=== PATIENT | female | born 1955 | race Caucasian/White ===

== ENCOUNTER 2018-05-09 12:46 | Outpatient (CLI) | payer MEDICARE ==
--- NOTE | 2018-05-09 14:42 | ULT ---
ULTRASOUND RIGHT GROIN: Date: 05/09/18 HISTORY: 62-year-old female with right groin pain and swelling for 2 weeks, worsening recently. FINDINGS: No solid or cystic mass is identified. IMPRESSION: 1. Negative. 2. Recommend CT of abdomen and pelvis (IV contrast is preferred, but a noncontrast CT would probably be adequate, if IV contrast is contraindicated). POS: [facility]
== END 2018-05-09 12:47 | disposition home or self-care (01) ==
LOC: ULT 12:46
PROVIDERS: ATTEND Family Medicine
DX: K40.90 Unilateral inguinal hernia, without obstruction or gangrene, not specified as recurrent (principal)
CPT/HCPCS: 76999

== ENCOUNTER 2018-05-11 12:06 | Outpatient (CLI) | payer MEDICARE ==
--- NOTE | 2018-05-11 13:11 | CT ---
CT OF THE PELVIS WITH CONTRAST: Date: 05/11/18 COMPARISON: None. HISTORY: Right inguinal pain and swelling. Right hip and groin pain. TECHNIQUE: Multiple contiguous axial images were obtained in a CT of the pelvis with contrast. Coronal reformats were performed. FINDINGS: Mild degenerative changes are seen in both hips. No fracture or dislocation seen. The patient is status post hysterectomy. The visualized intrapelvic structures are unremarkable. No p elvic adenopathy is seen. No abnormality is seen in either inguinal region. No enlarged inguinal lymph nodes are present. IMPRESSION: No significant abnormality. POS: [facility]
[2018-05-11] MEDS ORDERED: Iopamidol 370 76% 100 ML VIAL ONE (15:08)
== END 2018-05-11 12:07 | disposition home or self-care (01) ==
LOC: CT 12:06
PROVIDERS: ATTEND Family Medicine
DX: R10.30 Lower abdominal pain, unspecified (principal)
CPT/HCPCS: 72193; 82565; Q9967

== ENCOUNTER 2018-08-01 13:26 | Outpatient (CLI) | payer MEDICARE ==
--- NOTE | 2018-08-01 15:27 | MRI ---
MRI Lumbar Spine Noncontrast: HISTORY: Low back pain with radiation of pain into right lower extremity. Symptoms been present for 2 months. Lumbar radiculopathy. COMPARISON: None FINDINGS: The visualized retroperitoneal structures demonstrate a normal appearance. Conus medullaris is normal in morphology and terminates at the L1-2 level. Normal signal intensity is demonstrated in the bone marrow. L1-2: There is no disc bulge or disc herniation. Central spinal canal and neural foramina are patent. L2-3: There is a mild broad-based disc osteophyte complex which results in flattening of the anterior aspect of the thecal sac. Neural foramina are patent. L3-4: There is a mild broad-based disc osteophyte complex with evidence of annular tear involving the left posterior lateral margin of the intervertebral disc. Mild facet degenerative changes are seen. No significant central canal narrowing. The neural foramina are patent. L4-5: There is mild broad-based disc osteophyte complex. Facet hypertrophic changes are also present with prominent fluid signal intensity seen within the facet joints. Mild ligamentous thickening is present. There is mild generalized narrowing of the central spinal canal. There is minimal right-side d neural foraminal narrowing. The left neural foramen is patent. L5-S1: There is minimal disc osteophyte complex. Central spinal canal and neural foramina are patent. There are moderate facet hypertrophic changes with fluid signal intensity seen within the facet joints. IMPRESSION: 1. Prominent facet degenerative changes at the L4-5 and to a lesser extent at the L5-S1 levels. Fluid signal intensity is seen within the facet joints. 2. Mild multilevel disc degenerative changes. There is no high-grade central canal or neural foramina l narrowing at any level.
== END 2018-08-01 13:27 | disposition home or self-care (01) ==
LOC: SCSMRI 13:26
PROVIDERS: ATTEND Neurological Surgery
DX: M47.26 Other spondylosis with radiculopathy, lumbar region (principal); M47.27 Other spondylosis with radiculopathy, lumbosacral region; M51.16 Intervertebral disc disorders with radiculopathy, lumbar region
CPT/HCPCS: 72148

== ENCOUNTER 2020-04-21 13:32 | Outpatient (CLI) | payer MEDICARE | END 2020-04-21 13:33 | disposition home or self-care (01) | LOC: SCSRAD 13:32 | PROVIDERS: ATTEND Family Medicine | DX: R06.00 Dyspnea, unspecified (principal) | CPT/HCPCS: 71046 ==

== ENCOUNTER 2021-12-06 10:13 | Outpatient (CLI) | payer MEDICARE | END 2021-12-06 10:14 | disposition home or self-care (01) | LOC: SCSRAD 10:13 | PROVIDERS: ATTEND Family Medicine | DX: R05.9 Cough, unspecified (principal) | CPT/HCPCS: 71046 ==

== ENCOUNTER 2022-03-15 10:07 | Outpatient (CLI) | payer MEDICARE | END 2022-03-15 10:08 | disposition home or self-care (01) | LOC: SCSRAD 10:07 | PROVIDERS: ATTEND Family Medicine | DX: M25.511 Pain in right shoulder (principal) ==

== ENCOUNTER 2023-03-30 08:24 | Outpatient (CLI) | payer MEDICARE | END 2023-03-30 08:25 | disposition home or self-care (01) | LOC: BICRAD 08:24 | PROVIDERS: ATTEND Family Medicine | DX: R07.9 Chest pain, unspecified (principal) | CPT/HCPCS: 71046 ==

== ENCOUNTER 2024-10-22 11:22 | Outpatient (CLI) | payer MEDICARE | END 2024-10-22 11:23 | disposition home or self-care (01) | LOC: CT 11:22 | PROVIDERS: ATTEND Family Medicine | DX: R10.9 Unspecified abdominal pain (principal) | CPT/HCPCS: 74176 ==